=== PATIENT | female | born 1980 | race African-American/Black ===

== ENCOUNTER 2016-10-15 17:29 | Emergency (ER) | payer MEDICAID, OTHER ==
[~2016-10-15] VITALS: Ht 170.2 cm; Wt 83.9 kg
[~2016-10-15 17:29] MED LIST: PHEN100C4 PO
--- NOTE | 2016-10-15 17:42 | NUR ---
PT BIB [facility] S/P [facility] AT HOME. PT IS CRYING AND APPEARS ANXIOUS AT THIS TIME. DOES NOT APPEAR POSTICTAL. ABLE TO ANSWER QUESTIONS AND FOLLOW COMMANDS, A/OX4. RESP EVEN UNLABORED. SKIN WARM NONDIAPHORETIC. NO VISIBLE TRAUMA NOTED. ALSO C/O BACK PAIN, WHICH IS CHRONIC PER PT. SZ PRECAUTIONS IMPLEMENTED. IN ER BED 11 ON MONITOR.
[2016-10-15] MEDS ORDERED: IV NS 0.9% 1,000 ML ONE (17:46)
[2016-10-15] MEDS ORDERED: LORAZEPAM INJ 2 MG/ML VIAL ONE (17:46)
[2016-10-15] MEDS ORDERED: IV SET PRIMARY 1 EA INFUS.SET MC ONE (17:46)
[2016-10-15 17:50] LABS: BASOPHILS % (AUTO) 0.4 % (0.0-2.0); EOSINOPHILS # (AUTO) 0.2 /CMM (0.0-0.7); EOSINOPHILS % (AUTO) 2.1 % (0.0-6.0); HEMATOCRIT 30 % (33-45); LYMPHOCYTES # (AUTO) 2.2 /CMM (0.8-4.8); LYMPHOCYTES % (AUTO) 29.7 % (20.0-44.0); MEAN CORPUSCULAR HEMOGLOBIN 19 PG (26.0-33.0); MEAN CORPUSCULAR HGB CONC 30 g/dl (31.0-36.0); MEAN CORPUSCULAR VOLUME 63 fL (82-100); MONOCYTES # (AUTO) 0.7 /CMM (0.1-1.30); MONOCYTES % (AUTO) 9.6 % (2.0-12.0); NEUTROPHILS # (AUTO) 4.4 /CMM (1.8-8.9); NEUTROPHILS % (AUTO) 58.2 % (43.0-81.0); PLATELET COUNT (AUTO) 233 /CMM (150-450); RED BLOOD CELL COUNT(AUTO) 4.72 MIL/uL (4.0-5.2); WHITE BLOOD COUNT (AUTO) 7.5 K/uL (4.3-11.0)
[2016-10-15] MEDS ORDERED: LORAZEPAM INJ 2 MG/ML VIAL IVP ONE (18:00)
[2016-10-15] MEDS ORDERED: IV NS 0.9% 1,000 ML BAG IV ONE (18:00)
[2016-10-15 18:05] LABS: PHENYTOIN (DILANTIN) 10.5 ug/ml (10.0-20.0)
[2016-10-15 18:17] LABS: CREATININE 0.8 mg/dL (0.6-1.3); POTASSIUM 3.4 mmol/L (3.5-5.1)
[2016-10-15] MEDS ORDERED: oxyCODONE/APAP (5/325 MG) 1 UDTAB TABLET PO ONE (18:30)
[2016-10-15] MEDS ORDERED: oxyCODONE/APAP (5/325 MG) 1 UDTAB TABLET ONE (18:33)
--- NOTE | 2016-10-15 18:35 | NUR ---
PT C/O BACK AND KNEE PAIN. PT STILL CRYING AND APPEARS ANXIOUS. VSS.
[2016-10-15 18:45] VITALS: BP 161/102
--- NOTE | 2016-10-15 19:16 | NUR ---
Patient does not wish to proceed with medical care recommended by [employer] OFFICER. Patient given information related to possible complications, up to and including , which could occur as a result of leaving the hospital at this time. Patient verbalizes understanding of risks involved due to leaving against medical advice. Patient has signed AMA form. Ambulated from ER with steady gait. IV removed. Catheter intact and site benign. Pressure and 4x4 applied to site. No bleeding noted.
--- NOTE | 2016-10-15 19:20 | NUR ---
discharge instructions were printed at 1916 and given to me at this time. pt signed AMA form at 1912 because she refused to wait for discharge papers. SR. MEDIA MANAGER notified.
== END 2016-10-15 19:17 | disposition left against medical advice (07) ==
LOC: ER 17:31
DX: G40.909 Epilepsy, unspecified, not intractable, without status epilepticus (principal); M54.5 Low back pain; M25.561 Pain in right knee; G89.29 Other chronic pain; F17.200 Nicotine dependence, unspecified, uncomplicated
CPT/HCPCS: 36415; 73564; 80048; 80185; 85025; 96361; 96374; 99285; 99406; A4606; J2060; J7030; Z7610

== ENCOUNTER 2025-02-28 14:50 | Emergency (ER) | payer MEDICAID, OTHER ==
[~2025-02-28] VITALS: Ht 170.2 cm; Wt 93.4 kg
[2025-02-28] MEDS ORDERED: ACETAMINOPHEN ES 500 MG TABLET ONE (15:22)
[2025-02-28 15:36] LABS: PLATELET COUNT (AUTO) 274 K/uL (150-450); RED BLOOD CELL COUNT(AUTO) 4.84 MIL/uL (4.0-5.2); RED CELL DISTRIBUTION WIDTH 13.7 % (11.5-15.0); WHITE BLOOD COUNT (AUTO) 4.8 K/uL (4.3-11.0)
[2025-02-28] MEDS: IV NS 0.9% 1,000 ML BAG IV ONE (15:37)
[2025-02-28] MEDS: ACETAMINOPHEN ES 500 MG TABLET PO ONE (15:39)
[2025-02-28 15:44] LABS: CALCIUM, SERUM 9.4 mg/dL (8.5-10.1); CREATININE 0.8 mg/dL (0.6-1.3); SODIUM SERUM 134.0 mmol/L (136-145); UREA NITROGEN, BLOOD 3.0 mg/dL (7-18)
[2025-02-28] MEDS ORDERED: PHENYTOIN EXTENDED RELEASE 100 MG CAPSULE PO ONE (16:27)
[2025-02-28] MEDS: PHENYTOIN EXTENDED RELEASE 100 MG CAPSULE PO ONE (16:32)
[2025-02-28 16:46] VITALS: BP 170/109; TEMP 98.7; O2SAT 98
== END 2025-02-28 16:47 | disposition home or self-care (01) ==
LOC: ER 14:56
DX: G40.909 Epilepsy, unspecified, not intractable, without status epilepticus (principal); I10 Essential (primary) hypertension; Z79.899 Other long term (current) drug therapy
CPT/HCPCS: 99283; 96360; 85025; 80048; 80185; 36415; J7030